=== PATIENT | female | born 1955 | race Caucasian/White ===

== ENCOUNTER 2020-07-24 02:17 | Inpatient (IN) | payer MEDICAID, SELFPAY ==
[2020-07-24] VITALS (7 sets, daily range): BP systolic 83–138; BP diastolic 38–69
[~2020-07-24] VITALS: Ht 157.5 cm; Wt 81.4 kg
[2020-07-24] MEDS ORDERED: MORPHINE SULFATE 4 MG/ML SYR IVP ONE (02:45)
[2020-07-24] MEDS ORDERED: DILTIAZEM 125 MG in DEXTROSE 5% 100 ML IV ONE (02:45)
[2020-07-24] MEDS ORDERED: ASPIRIN 325 MG TAB PO ONE (02:45)
[2020-07-24] MEDS ORDERED: ENOXAPARIN 80 MG/0.8 ML SYR SUBQ ONE ×2 (02:45→04:42)
[2020-07-24] MEDS ORDERED: DILTIAZEM 25 MG/5 ML VIAL IVP ONE (02:45)
[2020-07-24 03:24] LABS: ALBUMIN 3.7 g/dL (3.4-5.0); ANION GAP 10.7 (8-16); CARBON DIOXIDE 27.8 mmol/L (21-32); POTASSIUM 3.5 mmol/L (3.5-5.1); TOTAL BILIRUBIN 0.4 mg/dL (0.0-1.0)
[2020-07-24] MEDS ORDERED: LISI-487 PO ×2 (03:36→08:40)
[2020-07-24] MEDS ORDERED: SIMV10TA1 PO (03:36)
[2020-07-24] MEDS ORDERED: CARB1TER9 PO (03:36)
[2020-07-24 03:37] LABS: CREATINE KINASE MB 1.1 ng/mL (0-3.6)
[2020-07-24 04:18] LABS: BASOPHILS % (AUTO) 0.5 % (0.0-2.0); EOSINOPHILS # (AUTO) 0.5 K/uL (0-0.4); EOSINOPHILS % (AUTO) 5.5 % (0.0-4.0); HEMATOCRIT 39.5 % (36-48); LYMPHOCYTES # (AUTO) 2.9 K/uL (2.5-16.5); LYMPHOCYTES % (AUTO) 34.1 % (20.5-51.1); MEAN CORPUSCULAR HEMOGLOBIN 27 pg (27-31); MEAN CORPUSCULAR HGB CONC 33 g/dL (33-37); MEAN CORPUSCULAR VOLUME 82.7 fL (80-94); MONOCYTES # (AUTO) 0.4 K/uL (0.8-1.0); MONOCYTES % (AUTO) 5.3 % (1.7-9.3); NEUTROPHILS # (AUTO) 4.6 K/uL (1.8-7.7); NEUTROPHILS % (AUTO) 54.6 % (42.2-75.2); PLATELET COUNT (AUTO) 270 K/uL (140-450); RED BLOOD CELL COUNT(AUTO) 4.77 MIL/uL (4.20-5.40); RED CELL DISTRIBUTION WIDTH 14.5 % (11.6-13.7); WHITE BLOOD COUNT (AUTO) 8.5 K/uL (4.8-10.8)
[2020-07-24] MEDS ORDERED: guaiFENesin DM 200/20 MG-10 ML 10 ML UDC PO PRN (08:10)
[2020-07-24] MEDS: NACL 0.9% 1,000 ML IV SCH (08:10)
[2020-07-24] MEDS ORDERED: ONDANSETRON 4 MG/2 ML VIAL IM/IVP PRN (08:10)
[2020-07-24] MEDS ORDERED: HYDROcodone/APAP 7.5/325 MG 1 TAB PO PRN (08:10)
[2020-07-24] MEDS ORDERED: POTASSIUM CHLORIDE 10 MEQ TABER PO PRN (08:10)
[2020-07-24] MEDS ORDERED: ZOLPIDEM 5 MG TAB PO PRN (08:10)
[2020-07-24] MEDS ORDERED: ACETAMINOPHEN 325 MG TAB PO PRN (08:10)
[2020-07-24] MEDS ORDERED: DOCUSATE SODIUM 100 MG GELCAP PO PRN (08:10)
[2020-07-24 08:52] LABS: CHOL/HDL RATIO 3.8 (1-4.5); FREE T4 (FREE THYROXINE) 0.95 ng/dL (0.76-1.46); PHOSPHORUS 3.8 mg/dL (2.5-4.9); THYROID STIMULATING HORMONE 4.53 uIU/mL (0.34-3.74)
[2020-07-24] MEDS ORDERED: METOPROLOL 25 MG TAB PO SCH (09:00)
[2020-07-24] MEDS ORDERED: lisinopriL 20 MG TAB PO SCH (09:00)
[2020-07-24 09:14] LABS: PROTHROMBIN TIME 10.4 secs (10.8-13.4)
[2020-07-24] MEDS: PANTOPRAZOLE 40 MG TABEC PO SCH (09:33)
[2020-07-24] MEDS: CARBIDOPA/LEVODOPA 25/100 MG 1 TAB PO SCH (17:00)
[2020-07-24] MEDS: SOTALOL 80 MG TAB PO SCH (21:00)
[2020-07-24] MEDS: SIMVASTATIN 10 MG TAB PO SCH (23:23)
[2020-07-25] VITALS: BP 105/49
[2020-07-25] MEDS: APIXABAN 2.5 MG TAB PO SCH ×3 (00:30→20:37)
[2020-07-25] MEDS: NACL 0.9% 1,000 ML IV SCH ×2 (00:50→17:26)
[2020-07-25 04:00] VITALS: BP 95/41
[2020-07-25 06:44] LABS: BASOPHILS % (AUTO) 0.5 % (0.0-2.0); EOSINOPHILS # (AUTO) 0.3 K/uL (0-0.4); HEMATOCRIT 36.8 % (36-48); HEMOGLOBIN 12.2 g/dL (12.0-16.0); LYMPHOCYTES # (AUTO) 2.2 K/uL (2.5-16.5); LYMPHOCYTES % (AUTO) 27.1 % (20.5-51.1); MEAN CORPUSCULAR HEMOGLOBIN 28 pg (27-31); MEAN CORPUSCULAR HGB CONC 33 g/dL (33-37); MEAN CORPUSCULAR VOLUME 82.8 fL (80-94); MONOCYTES # (AUTO) 0.4 K/uL (0.8-1.0); MONOCYTES % (AUTO) 4.8 % (1.7-9.3); NEUTROPHILS # (AUTO) 5.2 K/uL (1.8-7.7); NEUTROPHILS % (AUTO) 63.6 % (42.2-75.2); PLATELET COUNT (AUTO) 265 K/uL (140-450); RED BLOOD CELL COUNT(AUTO) 4.44 MIL/uL (4.20-5.40); RED CELL DISTRIBUTION WIDTH 14.4 % (11.6-13.7); WHITE BLOOD COUNT (AUTO) 8.2 K/uL (4.8-10.8)
[2020-07-25 07:45] LABS: ANION GAP 12.4 (8-16); CARBON DIOXIDE 25.7 mmol/L (21-32); CREATININE 0.9 mg/dL (0.6-1.3); POTASSIUM 4.1 mmol/L (3.5-5.1)
[2020-07-25 08:00] VITALS: BP 119/58
[2020-07-25 08:07] LABS: T4 (THYROXINE) 6.7 ug/dL (4.5-12.0)
[2020-07-25] MEDS: SOTALOL 80 MG TAB PO SCH ×2 (08:50→20:37)
[2020-07-25] MEDS: CARBIDOPA/LEVODOPA 25/100 MG 1 TAB PO SCH ×4 (08:51→17:18)
[2020-07-25] MEDS: PANTOPRAZOLE 40 MG TABEC PO SCH (08:52)
[2020-07-25] MEDS ORDERED: DILTIAZEM 120 MG CAPER PO SCH (09:00)
[2020-07-25 12:00] VITALS: BP 121/46
[2020-07-25 16:00] VITALS: BP 108/60
[2020-07-25 20:34] VITALS: BP 116/56
[2020-07-25] MEDS: SIMVASTATIN 10 MG TAB PO SCH (20:38)
[2020-07-26 00:05] LABS: APPEARANCE,URINE CLEAR (CLEAR); BILIRUBIN,URINE NEGATIVE (NEGATIVE); BLOOD, URINE NEGATIVE (NEGATIVE); COLOR,URINE YELLOW (YELLOW); LEUKOCYTE ESTERASE ,URINE 1+ (NEGATIVE); NITRITE, URINE NEGATIVE (NEGATIVE); UGLUCOSE NEGATIVE (NEGATIVE)
[2020-07-26 00:30] VITALS: BP 102/50
[2020-07-26 00:32] LABS: RBC,URINE 0-5 /HPF (0-5)
[2020-07-26 00:53] LABS: BARBITURATE, URINE NEGATIVE ng/ml (NEG <=200); BENZODIAZEPINE, URINE NEGATIVE ng/mL (NEG <=200); CANNABINOID, URINE NEGATIVE ng/mL (NEG <=50); COCAINE, URINE NEGATIVE ng/mL (NEG <=300); OPIATE, URINE NEGATIVE ng/mL (NEG <=2000); PHENCYCLIDINE SCREEN,URINE NEGATIVE ng/mL (NEG <=25)
[2020-07-26 04:10] VITALS: BP 102/42
[2020-07-26 06:20] LABS: BASOPHILS # (AUTO) 0.1 K/uL (0.00-0.22); BASOPHILS % (AUTO) 0.6 % (0.0-2.0); EOSINOPHILS # (AUTO) 0.3 K/uL (0-0.4); EOSINOPHILS % (AUTO) 3.5 % (0.0-4.0); HEMATOCRIT 36.7 % (36-48); LYMPHOCYTES # (AUTO) 2.7 K/uL (2.5-16.5); LYMPHOCYTES % (AUTO) 29.6 % (20.5-51.1); MEAN CORPUSCULAR HEMOGLOBIN 27 pg (27-31); MEAN CORPUSCULAR HGB CONC 33 g/dL (33-37); MEAN CORPUSCULAR VOLUME 82.8 fL (80-94); MONOCYTES # (AUTO) 0.5 K/uL (0.8-1.0); MONOCYTES % (AUTO) 5.6 % (1.7-9.3); NEUTROPHILS # (AUTO) 5.6 K/uL (1.8-7.7); NEUTROPHILS % (AUTO) 60.7 % (42.2-75.2); PLATELET COUNT (AUTO) 263 K/uL (140-450); RED BLOOD CELL COUNT(AUTO) 4.43 MIL/uL (4.20-5.40); RED CELL DISTRIBUTION WIDTH 14.4 % (11.6-13.7); WHITE BLOOD COUNT (AUTO) 9.3 K/uL (4.8-10.8)
[2020-07-26 07:12] LABS: ANION GAP 10.6 (8-16); CARBON DIOXIDE 27.4 mmol/L (21-32); CREATININE 0.9 mg/dL (0.6-1.3)
[2020-07-26 08:00] VITALS: BP 118/67
[2020-07-26] MEDS: CARBIDOPA/LEVODOPA 25/100 MG 1 TAB PO SCH ×3 (09:00→13:25)
[2020-07-26] MEDS: SOTALOL 80 MG TAB PO SCH (09:03)
[2020-07-26] MEDS: APIXABAN 2.5 MG TAB PO SCH (09:04)
[2020-07-26] MEDS: PANTOPRAZOLE 40 MG TABEC PO SCH (09:06)
[2020-07-26] MEDS: NACL 0.9% 1,000 ML IV SCH (10:10)
[2020-07-26] MEDS ORDERED: SOTA80TA PO (10:36)
[2020-07-26] MEDS ORDERED: APIX5TAB PO (10:36)
[2020-07-26] MEDS ORDERED: CEPH250C16 PO (10:37)
[2020-07-26 11:02] VITALS: BP 118/67
== END 2020-07-26 13:40 | disposition home or self-care (01) | DRG 201 ==
LOC: MED 02:17 → MTU 03:33 → MMU 07:42
PROVIDERS: ADMIT Family Medicine; ATTEND Family Medicine
DX: I48.91 Unspecified atrial fibrillation (principal); E78.5 Hyperlipidemia, unspecified; G20 Parkinson's disease; N39.0 Urinary tract infection, site not specified; I95.9 Hypotension, unspecified; I11.9 Hypertensive heart disease without heart failure; R09.89 Other specified symptoms and signs involving the circulatory and respiratory systems; Z20.822 Contact with and (suspected) exposure to COVID-19; Z79.899 Other long term (current) drug therapy; Z56.0 Unemployment, unspecified
CPT/HCPCS: 36415; 71045; 80048; 80053; 80305; 81001; 82150; 82550; 82553; 83036; 83690; 83735; 83880; 84100; 84436; 84439; 84443; 84479; 84484; 85025; 85379; 85610; 85730; 87081; 87086; 93005; 96374; 96375; 99291; J1650; J2270; J3490; J7030; J7060

== ENCOUNTER 2022-07-17 15:34 | Emergency (ER) | payer MEDICAID ==
[~2022-07-17] VITALS: Ht 154.9 cm; Wt 73.9 kg
[~2022-07-17 15:34] MED LIST: APIX5TAB PO; CARB1TER9 PO; CEPH250C16 PO; SIMV-371 PO; SOTA80TA PO
[2022-07-17 15:46] VITALS: BP 166/71
--- NOTE | 2022-07-17 16:03 | NUR ---
ASSUMED PATIENT CARE, NURSING ASSESSMENT COMPLETED. SEEN AND EVALUATED BY GORDON VALLADARES COMPLETED.
[2022-07-17] MEDS ORDERED: ATA25 PO (16:18)
[2022-07-17 16:31] VITALS: BP 155/68
--- NOTE | 2022-07-17 16:31 | NUR ---
DISPO AND MEDICAL DECISION, DC HOME WITH E-RX AND AFTERCARE INSTRUCTIONS. UNDERSTOOD BY PATIENT WELL. PATIENT STABLE, VS WNL.
== END 2022-07-17 16:31 | disposition home or self-care (01) ==
LOC: MED 15:34
DX: F41.9 Anxiety disorder, unspecified (principal); I10 Essential (primary) hypertension; Z79.899 Other long term (current) drug therapy
CPT/HCPCS: 99283

== ENCOUNTER 2023-11-14 15:12 | Emergency (ER) | payer MEDICAID ==
[~2023-11-14] VITALS: Ht 152.4 cm; Wt 63.5 kg
[~2023-11-14 15:12] MED LIST changes: +ATA25 PO
[2023-11-14 15:16] VITALS: BP 178/92; PULSE 99; RESP 18; TEMP 98.4; O2SAT 95
[2023-11-14 15:48] LABS: APPEARANCE,URINE CLEAR (CLEAR); BILIRUBIN,URINE NEGATIVE (NEGATIVE); BLOOD, URINE 1+ (NEGATIVE); COLOR,URINE YELLOW (YELLOW); LEUKOCYTE ESTERASE ,URINE NEGATIVE (NEGATIVE); NITRITE, URINE NEGATIVE (NEGATIVE); PROTEIN,URINE 1+ (NEGATIVE); UGLUCOSE NEGATIVE (NEGATIVE); UROBILINOGEN,URINE 0.2 EU/dL (0.2 - 1)
[2023-11-14 16:03] LABS: BACTERIA,URINE 10-30 (MOD) /HPF (None Seen); SQUAMOUS EPITHELIAL CELL,UR 4-10 (MOD) /LPF (0-3 (FEW)); WBC,URINE 0-5 /HPF (0-5)
[2023-11-14 16:24] LABS: BASOPHILS # (AUTO) 0.1 K/uL (0.00-0.22); BASOPHILS % (AUTO) 1.4 % (0.0-2.0); EOSINOPHILS # (AUTO) 0.2 K/uL (0-0.4); EOSINOPHILS % (AUTO) 2.2 % (0.0-4.0); HEMATOCRIT 39.5 % (36-48); HEMOGLOBIN 13.4 g/dL (12.0-16.0); LYMPHOCYTES # (AUTO) 2.9 K/uL (2.5-16.5); LYMPHOCYTES % (AUTO) 34.3 % (20.5-51.1); MEAN CORPUSCULAR HEMOGLOBIN 28 pg (27-31); MEAN CORPUSCULAR HGB CONC 34 g/dL (33-37); MEAN CORPUSCULAR VOLUME 81.7 fL (80-94); MONOCYTES # (AUTO) 0.5 K/uL (0.8-1.0); MONOCYTES % (AUTO) 6.3 % (1.7-9.3); NEUTROPHILS # (AUTO) 4.7 K/uL (1.8-7.7); NEUTROPHILS % (AUTO) 55.8 % (42.2-75.2); PLATELET COUNT (AUTO) 248 K/uL (140-450); RED BLOOD CELL COUNT(AUTO) 4.84 MIL/uL (4.20-5.40); WHITE BLOOD COUNT (AUTO) 8.5 K/uL (4.8-10.8)
[2023-11-14] MEDS: NACL 0.9% 1,000 ML IV SCH (16:28)
[2023-11-14 17:09] LABS: ANION GAP 11.9 (8-16); CALCIUM 8.8 mg/dL (8.5-10.1); CARBON DIOXIDE 29.5 mmol/L (21-32); CREATININE 1.2 mg/dL (0.6-1.3); POTASSIUM 3.4 mmol/L (3.5-5.1)
[2023-11-14 17:13] LABS: ALBUMIN 3.5 g/dL (3.4-5.0); BILIRUBIN,DIRECT 0.1 mg/dL (0.0-0.3); TOTAL BILIRUBIN 0.3 mg/dL (0.0-1.0); TOTAL PROTEIN, SERUM 7.5 g/dL (6.4-8.2)
[2023-11-14 17:40] VITALS: BP 155/92; PULSE 88; RESP 16; TEMP 98.4; O2SAT 99
== END 2023-11-14 17:40 | disposition home or self-care (01) ==
LOC: MED 15:12
DX: R31.9 Hematuria, unspecified (principal); R10.2 Pelvic and perineal pain; I10 Essential (primary) hypertension; Z98.890 Other specified postprocedural states; Z86.79 Personal history of other diseases of the circulatory system; Z79.2 Long term (current) use of antibiotics; Z79.899 Other long term (current) drug therapy
CPT/HCPCS: 36415; 74176; 80048; 80076; 81001; 83690; 85025; 87086; 96360; 99284; J7030